=== PATIENT | male | born 1940 | race Caucasian/White ===

== ENCOUNTER 2018-04-08 13:56 | Inpatient (IN) | payer MEDICARE, BC | END 2018-04-17 12:39 | disposition home or self-care (01) | LOC: SSTAY O 13:56 → MED 3N 19:24 → CICU 2S 04-14 18:53 → ICU 2S 04-09 14:26 | PROC: 0210093 Bypass Coronary Artery, One Artery from Coronary Artery with Autologous Venous Tissue, Open Approach (ICD-10-PCS; principal; 2018-04-09 12:15) | PROC: 02RF08Z Replacement of Aortic Valve with Zooplastic Tissue, Open Approach (ICD-10-PCS; 2018-04-09 12:15) | PROC: 02100Z9 Bypass Coronary Artery, One Artery from Left Internal Mammary, Open Approach (ICD-10-PCS; 2018-04-09 12:15) | PROC: 06BP4ZZ Excision of Right Saphenous Vein, Percutaneous Endoscopic Approach (ICD-10-PCS; 2018-04-09 12:15) | PROC: 02L70ZK Occlusion of Left Atrial Appendage, Open Approach (ICD-10-PCS; 2018-04-09 12:15) | DX: I25.110 Atherosclerotic heart disease of native coronary artery with unstable angina pectoris (principal); N17.0 Acute kidney failure with tubular necrosis; I48.0 Paroxysmal atrial fibrillation ==

== ENCOUNTER 2020-01-10 12:03 | Inpatient (IN) | payer MEDICARE, BC ==
[2020-01-10] VITALS (12 sets, daily range): BP systolic 124–178; BP diastolic 67–117
[~2020-01-10] VITALS: Ht 188 cm; Wt 102.5 kg
[~2020-01-10 12:03] MED LIST: AMOX-422 PO; APIX5TAB3 PO; LISI-600 PO; METO25TA6 PO; MULT-620 PO; PRAV40TA3 PO; TRAM50TA2 PO
[2020-01-10] MEDS ORDERED: METO1TAB25 PO (12:28)
[2020-01-10] MEDS ORDERED: CLOT15CR73 TP (12:38)
[2020-01-10] MEDS ORDERED: METO50TA17 PO (12:38)
[2020-01-10 12:56] LABS: BASOPHILS % (AUTO) 0.2 % (0-1); EOSINOPHILS # (AUTO) 0.2 X10'3 (0-0.9); EOSINOPHILS % (AUTO) 1.2 % (0-6); HEMATOCRIT 52.4 % (42.0-52.0); HEMOGLOBIN 17.8 g/dl (14.0-17.9); LYMPHOCYTES # (AUTO) 0.9 X10'3 (1.1-4.8); LYMPHOCYTES % (AUTO) 6.1 % (21-51); MEAN CORPUSCULAR HEMOGLOBIN 31.6 PG (27.0-31.0); MEAN CORPUSCULAR HGB CONC 33.9 g/dL (33.0-36.5); MEAN CORPUSCULAR VOLUME 93.4 FL (78-98); MEAN PLATELET VOLUME 8.1 FL (7.4-10.4); MONOCYTES # (AUTO) 0.8 X10'3 (0-0.9); MONOCYTES % (AUTO) 5.2 % (2-12); NEUTROPHILS # (AUTO) 13.3 X10'3 (1.8-7.7); NEUTROPHILS % (AUTO) 87.3 % (42-75); PLATELET COUNT 145 X10'3 (140-440); RED BLOOD COUNT 5.61 X10'6 (4.70-6.10); RED CELL DISTRIBUTION WIDTH 13.9 % (11.5-14.5); WHITE BLOOD COUNT 15.2 X10'3 (4.5-11.0)
--- NOTE | 2020-01-10 13:00 | NUR ---
DR SEGUNDO INFORMED OF PATIENT AND HIS "PERFORATED BOWEL" FROM [facility] IMAGING CT DONE TODAY, NO ORDERS RECEIVED
[2020-01-10 13:07] LABS: ALANINE AMINOTRANSFERASE 26 U/L (12-78); ALBUMIN 3.9 G/DL (3.4-5.0); ALBUMIN/GLOBULIN RATIO 1.1 (1.1-1.5); ALKALINE PHOSPHATASE 94 IU/L (46-116); ANION GAP 8 (8-16); ASPARTATE AMINO TRANSFERASE 24 U/L (10-37); BILIRUBIN,TOTAL 1.2 MG/DL (0.1-1.0); BLOOD UREA NITROGEN 24 MG/DL (7-18); BUN/CREATININE RATIO 19.5 (5.4-32.0); CHLORIDE 102 MMOL/L (99-107); CREATININE 1.23 MG/DL (0.60-1.10); GLUCOSE 121 MG/DL (70-104); POTASSIUM 4.2 MMOL/L (3.5-5.1); SODIUM 138 MMOL/L (135-145); TOTAL CARBON DIOXIDE 28.3 MMOL/L (24-32); TOTAL PROTEIN 7.6 G/DL (6.4-8.2); eGFR 57 ML/MIN
[2020-01-10 13:25] LABS: AMYLASE 4656 U/L (25-115)
[2020-01-10 13:30] LABS: LIPASE > 30000 U/L (73-393)
[2020-01-10] MEDS ORDERED: piperacillin/tazo 3.375gm/50ml 50 ML IV ONE (13:30)
[2020-01-10 13:40] LABS: CLARITY,URINE SLIGHTLY CLOUDY (Clear); COLOR,URINE YELLOW (Yellow); GLUCOSE, URINE NEGATIVE (Neg); KETONES,URINE TRACE mg/dl (Neg); LEUKOCYTE ESTERASE ,URINE NEGATIVE (Neg); NITRITES, URINE NEGATIVE (Neg); OCCULT BLOOD,URINE NEGATIVE (Neg); PROTEIN,URINE 30 mg/dl (Neg)
[2020-01-10] MEDS ORDERED: acetaminophen 650mg rectal suppository RC PRN (13:40)
[2020-01-10 13:43] LABS: UA COLLECTION TYPE URINAL
[2020-01-10 13:52] LABS: COARSE GRANULAR CAST 0-3 /LPF (NEGATIVE); MUCUS STRANDS MANY /LPF (Neg); SQUAMOUS EPITHELIAL CELL,UR FEW /LPF (FEW)
[2020-01-10 13:53] LABS: HYALINE CASTS 0-3 /LPF (NEGATIVE); TRANSITIONAL EPI CELLS,URINE FEW /HPF
[2020-01-10 13:55] LABS: BACTERIA,URINE NONE SEEN /HPF (Neg); RBC,URINE 0-2 /HPF (0-2); WBC,URINE 0-4 /HPF (0-4)
--- NOTE | 2020-01-10 14:00 | NUR ---
DR SEGUNDO SPOKE TO SURGEON DR RUEDA
[2020-01-10] MEDS: normal saline 1000ml 1,000 ML IV SCH ×2 (14:10→20:25)
--- NOTE | 2020-01-10 14:14 | NUR ---
[facility] OR [facility] HERE AND TAKING PATIENT TO OR FOR SURGERY BY DR RUEDA. AT BEDSIDE TO GO WITH LOURDES TO MEET DR. RUEDA. ANGELIQUE ON POLE NOT HUNG PER FOOTWEAR MACHINERY INSTRUCTOR. KAI, AXOXDonnie, MARIBETH. UNABLE TO GIVE PATIENT PAIN MEDICINE DILAUDID IS NOT STOCKED IN THE ER. NS HUNG TO RIGHT AC 18 G PIV.
[2020-01-10] MEDS ORDERED: ondansetron/PF 4mg/2ml inj IV PRN (14:15)
[2020-01-10] MEDS ORDERED: hydrALAZINE 20mg/ml inj. IV PRN (14:15)
[2020-01-10] MEDS ORDERED: ringers solution, lacted 1,000 ML IV SCH (14:15)
[2020-01-10] MEDS ORDERED: HYDROmorphone/PF 0.2 MG/ML SYRINGE IV PRN (14:15)
[2020-01-10] MEDS ORDERED: fentaNYL/PF 50MCG/1 ML 2ML syringe IV PRN (14:15)
[2020-01-10] MEDS ORDERED: labetalol 20mg/4ml (5mg/ml) syringe IV PRN (14:15)
[2020-01-10] MEDS: HYDROmorphone/PF 0.2 MG/ML SYRINGE IV PRN ×2 (14:28→17:07)
[2020-01-10] MEDS ORDERED: phenylephrine 10mg/ml inj. ONE (14:47)
[2020-01-10] MEDS ORDERED: sevoflurane 250ml liquid IH ONE (14:47)
[2020-01-10] MEDS ORDERED: midazolam 2 mg/2 ml injection ONE (14:50)
[2020-01-10] MEDS ORDERED: fentaNYL/PF 50MCG/1 ML 2ML syringe ONE ×3 (14:50→16:16)
[2020-01-10] MEDS ORDERED: propofol inj 20 ML IV ONE (15:01)
[2020-01-10] MEDS ORDERED: LIDOcaine 2% (20mg/ml) 5ml vial ONE (15:01)
[2020-01-10] MEDS ORDERED: dexamethasone sod phosphate 4mg/ml inj. ONE (15:02)
[2020-01-10] MEDS ORDERED: rocuronium 10mg/ml inj IV ONE ×2 (15:02→15:36)
[2020-01-10] MEDS ORDERED: ondansetron/PF 4mg/2ml inj ONE (15:03)
[2020-01-10] MEDS ORDERED: piperacillin/tazo 4.5gm/100ml 100 ML IV SCH (16:00)
[2020-01-10] MEDS ORDERED: labetalol 20mg/4ml (5mg/ml) syringe IV ONE (16:17)
--- NOTE | 2020-01-10 16:36 | NUR ---
Received from OR via , accompanied by Anesthesiologist DR BARRAGAN and report given by Anesthesiolgist. AWAKE AND C/O ABD INCISIONAL PAIN. WILL MEDICATE. VITALS STABLE. DRESSING DI. ABD SOFT. LOBATO WITH CLEAR URINE.
[2020-01-10] MEDS: fentaNYL/PF 50MCG/1 ML 2ML syringe IV PRN ×2 (16:42→17:40)
[2020-01-10] MEDS ORDERED: acetaminophen 1,000mg/100ml IV 100 ML IV ONE (17:35)
--- NOTE | 2020-01-10 18:36 | NUR ---
Report called to receiving nurse. Transferred via BED Belongings . Special Issues communicated to receiving nurse. AWAKE AND ORIENTED. VITALS STABLE. DRESSING WITH SOME DRAINAGE NOTED. STATES PAIN IMPROVING. TO ORTHO RM [id number] AT THIS TIME.
--- NOTE | 2020-01-10 18:50 | NUR ---
RECEIVED PATIENT IN STABLE CONDITION TO ROOM 4013A.
[2020-01-11] VITALS (12 sets, daily range): BP systolic 117–160; BP diastolic 66–82
[2020-01-11] MEDS: piperacillin/tazo 4.5gm/100ml 100 ML IV SCH ×3 (01:04→17:19)
[2020-01-11] MEDS: HYDROmorphone inj. 0.5 MG/0.5 ML DISP.SYRIN IV PRN ×2 (05:30→09:55)
--- NOTE | 2020-01-11 06:23 | NUR ---
REPORT GIVEN TO RACHELE RAM
--- NOTE | 2020-01-11 06:28 | NUR ---
Patient in room ORTHO 4013a. I have received report from TOÑO RAM and had the opportunity to ask questions and assume patient care
[2020-01-11 08:38] LABS: BASOPHILS % (AUTO) 0.1 % (0-1); EOSINOPHILS % (AUTO) 0 % (0-6); HEMATOCRIT 42.8 % (42.0-52.0); HEMOGLOBIN 14.8 g/dl (14.0-17.9); LYMPHOCYTES # (AUTO) 0.7 X10'3 (1.1-4.8); MEAN CORPUSCULAR HGB CONC 34.5 g/dL (33.0-36.5); MEAN CORPUSCULAR VOLUME 92.8 FL (78-98); MEAN PLATELET VOLUME 8.2 FL (7.4-10.4); MONOCYTES # (AUTO) 0.7 X10'3 (0-0.9); MONOCYTES % (AUTO) 3.9 % (2-12); NEUTROPHILS # (AUTO) 15.3 X10'3 (1.8-7.7); PLATELET COUNT 115 X10'3 (140-440); RED BLOOD COUNT 4.61 X10'6 (4.70-6.10); RED CELL DISTRIBUTION WIDTH 14.2 % (11.5-14.5); WHITE BLOOD COUNT 16.6 X10'3 (4.5-11.0)
[2020-01-11 08:52] LABS: ALANINE AMINOTRANSFERASE 27 U/L (12-78); ALBUMIN 2.6 G/DL (3.4-5.0); ALBUMIN/GLOBULIN RATIO 0.8 (1.1-1.5); ALKALINE PHOSPHATASE 68 IU/L (46-116); ANION GAP 7 (8-16); ASPARTATE AMINO TRANSFERASE 26 U/L (10-37); BILIRUBIN,TOTAL 0.8 MG/DL (0.1-1.0); BLOOD UREA NITROGEN 23 MG/DL (7-18); CHLORIDE 104 MMOL/L (99-107); CREATININE 1.21 MG/DL (0.60-1.10); GLUCOSE 176 MG/DL (70-104); POTASSIUM 4.7 MMOL/L (3.5-5.1); SODIUM 135 MMOL/L (135-145); TOTAL CARBON DIOXIDE 23.8 MMOL/L (24-32); TOTAL PROTEIN 5.8 G/DL (6.4-8.2); eGFR 58 ML/MIN
[2020-01-11 09:15] LABS: LIPASE 3267 U/L (73-393)
--- NOTE | 2020-01-11 12:13 | NUR ---
REPORT CALLED TO JUSTICE IN [facility].
[2020-01-11] MEDS ORDERED: BUPIVAcaine/PF 2.5mg/ml (0.25%) 10ml vial ONE (12:57)
[2020-01-11] MEDS ORDERED: BUPIVACAINE liposomal/PF 13.3 MG/ML vial IM ONE (12:58)
[2020-01-11] MEDS ORDERED: MIDAZolam 1mg/ml 10ml vial ONE (13:00)
[2020-01-11] MEDS ORDERED: fentaNYL /PF 50mcg/ml 5ml ampule ONE (13:00)
--- NOTE | 2020-01-11 14:27 | NUR ---
Problems reprioritized. Patient report given, questions answered & plan of care reviewed with BRYANNA RAM.
[2020-01-11] MEDS: normal saline 1000ml 1,000 ML IV SCH ×2 (17:24→19:40)
--- NOTE | 2020-01-11 18:10 | NUR ---
Problems reprioritized. Patient report given, questions answered & plan of care reviewed with Savannah Gómez RN.
[2020-01-12] MEDS: piperacillin/tazo 4.5gm/100ml 100 ML IV SCH ×3 (00:02→17:06)
[2020-01-12] MEDS: HYDROmorphone inj. 0.5 MG/0.5 ML DISP.SYRIN IV PRN ×2 (00:07→05:28)
[2020-01-12] MEDS: ondansetron/PF 4mg/2ml inj IV PRN (00:07)
[2020-01-12 02:00] VITALS: BP 146/79
[2020-01-12] MEDS: normal saline 1000ml 1,000 ML IV SCH ×2 (05:28→15:40)
[2020-01-12 06:00] VITALS: BP 170/91
--- NOTE | 2020-01-12 06:35 | NUR ---
Report given to Toyin RAM.
--- NOTE | 2020-01-12 07:54 | NUR ---
PAGER ID: [phone] MESSAGE: [phone] KETTY PUTNAM CAN I GET THE DILAUDID INCREASED? AND HIS HOME MEDS RESTARTED. RACHELE [id number]
[2020-01-12 07:58] LABS: BASOPHILS % (AUTO) 0.1 % (0-1); EOSINOPHILS % (AUTO) 0.1 % (0-6); HEMOGLOBIN 13.8 g/dl (14.0-17.9); LYMPHOCYTES # (AUTO) 0.6 X10'3 (1.1-4.8); LYMPHOCYTES % (AUTO) 3.7 % (21-51); MEAN CORPUSCULAR HEMOGLOBIN 31.2 PG (27.0-31.0); MEAN CORPUSCULAR HGB CONC 33.7 g/dL (33.0-36.5); MEAN CORPUSCULAR VOLUME 92.6 FL (78-98); MEAN PLATELET VOLUME 8.4 FL (7.4-10.4); MONOCYTES # (AUTO) 1.1 X10'3 (0-0.9); MONOCYTES % (AUTO) 6.3 % (2-12); NEUTROPHILS # (AUTO) 15.8 X10'3 (1.8-7.7); NEUTROPHILS % (AUTO) 89.8 % (42-75); PLATELET COUNT 109 X10'3 (140-440); RED BLOOD COUNT 4.43 X10'6 (4.70-6.10); RED CELL DISTRIBUTION WIDTH 13.4 % (11.5-14.5); WHITE BLOOD COUNT 17.6 X10'3 (4.5-11.0)
[2020-01-12 08:09] LABS: ALANINE AMINOTRANSFERASE 23 U/L (12-78); ALBUMIN 2.5 G/DL (3.4-5.0); ALBUMIN/GLOBULIN RATIO 0.7 (1.1-1.5); ALKALINE PHOSPHATASE 64 IU/L (46-116); ANION GAP 8 (8-16); ASPARTATE AMINO TRANSFERASE 21 U/L (10-37); BILIRUBIN,TOTAL 1.1 MG/DL (0.1-1.0); BLOOD UREA NITROGEN 19 MG/DL (7-18); BUN/CREATININE RATIO 17.3 (5.4-32.0); CALCIUM 8.3 MG/DL (8.5-10.1); CHLORIDE 105 MMOL/L (99-107); GLUCOSE 117 MG/DL (70-104); LIPASE 598 U/L (73-393); POTASSIUM 4.4 MMOL/L (3.5-5.1); SODIUM 137 MMOL/L (135-145); TOTAL CARBON DIOXIDE 23.8 MMOL/L (24-32); TOTAL PROTEIN 5.9 G/DL (6.4-8.2); eGFR 64 ML/MIN
[2020-01-12] MEDS: HYDROmorphone 1 mg/ml syringe IV PRN ×3 (08:11→22:48)
[2020-01-12 10:00] VITALS: BP 140/81
[2020-01-12 14:00] VITALS: BP 154/89
[2020-01-12] MEDS: enoxaparin 100mg/ml syringe SUBCUT SCH ×2 (17:06→19:38)
[2020-01-12 18:00] VITALS: BP 172/89
--- NOTE | 2020-01-12 18:53 | NUR ---
Patient in room ORTHO 4013. I have received report from Toyin RAM and had the opportunity to ask questions and assume patient care.
--- NOTE | 2020-01-12 19:39 | NUR ---
Per Pharmacist non admin the 2000 dose of lovenox. Pt. received initial dose at 1700 this evening. Will restart BID scheduling in the AM.
--- NOTE | 2020-01-12 21:45 | NUR ---
PAGER ID: [phone] MESSAGE: [phone] Pt. José Miguel Woodard in 4013A. Had his f/c removed this afternoon. Lurdes leigh, has 750ml in his bladder. Please advise. Thank you. Hospitalist advised to put in a english catheter, and start the pt. on flomax.
[2020-01-12 22:00] VITALS: BP 155/87
[2020-01-13] MEDS: piperacillin/tazo 4.5gm/100ml 100 ML IV SCH ×2 (01:45→08:17)
[2020-01-13] MEDS: normal saline 1000ml 1,000 ML IV SCH ×2 (01:47→19:42)
[2020-01-13] MEDS: HYDROmorphone 1 mg/ml syringe IV PRN (05:09)
[2020-01-13 06:00] VITALS: BP 168/94
--- NOTE | 2020-01-13 06:37 | NUR ---
Problems reprioritized. Patient report given, questions answered & plan of care reviewed with Berenice RAM.
[2020-01-13 07:42] LABS: BASOPHILS # (AUTO) 0.1 X10'3 (0-0.2); BASOPHILS % (AUTO) 0.4 % (0-1); EOSINOPHILS # (AUTO) 0.2 X10'3 (0-0.9); EOSINOPHILS % (AUTO) 1.1 % (0-6); HEMATOCRIT 40.6 % (42.0-52.0); HEMOGLOBIN 13.9 g/dl (14.0-17.9); LYMPHOCYTES # (AUTO) 0.9 X10'3 (1.1-4.8); LYMPHOCYTES % (AUTO) 5.7 % (21-51); MEAN CORPUSCULAR HEMOGLOBIN 31.7 PG (27.0-31.0); MEAN CORPUSCULAR HGB CONC 34.2 g/dL (33.0-36.5); MEAN CORPUSCULAR VOLUME 92.5 FL (78-98); MEAN PLATELET VOLUME 7.8 FL (7.4-10.4); MONOCYTES # (AUTO) 0.9 X10'3 (0-0.9); MONOCYTES % (AUTO) 5.2 % (2-12); NEUTROPHILS # (AUTO) 14.5 X10'3 (1.8-7.7); NEUTROPHILS % (AUTO) 87.6 % (42-75); PLATELET COUNT 114 X10'3 (140-440); RED BLOOD COUNT 4.39 X10'6 (4.70-6.10); WHITE BLOOD COUNT 16.6 X10'3 (4.5-11.0)
[2020-01-13 07:49] LABS: ALANINE AMINOTRANSFERASE 36 U/L (12-78); ALBUMIN 2.4 G/DL (3.4-5.0); ALBUMIN/GLOBULIN RATIO 0.6 (1.1-1.5); ALKALINE PHOSPHATASE 101 IU/L (46-116); ANION GAP 8 (8-16); ASPARTATE AMINO TRANSFERASE 44 U/L (10-37); BILIRUBIN,TOTAL 1.5 MG/DL (0.1-1.0); BLOOD UREA NITROGEN 20 MG/DL (7-18); BUN/CREATININE RATIO 18.3 (5.4-32.0); CALCIUM 8.8 MG/DL (8.5-10.1); CHLORIDE 105 MMOL/L (99-107); CREATININE 1.09 MG/DL (0.60-1.10); GLUCOSE 108 MG/DL (70-104); LIPASE 117 U/L (73-393); POTASSIUM 4.1 MMOL/L (3.5-5.1); SODIUM 138 MMOL/L (135-145); TOTAL CARBON DIOXIDE 25.1 MMOL/L (24-32); TOTAL PROTEIN 6.2 G/DL (6.4-8.2); eGFR 65 ML/MIN
[2020-01-13] MEDS: enoxaparin 100mg/ml syringe SUBCUT SCH ×2 (08:21→19:42)
[2020-01-13 09:56] VITALS: BP 145/85
[2020-01-13 10:19] LABS: PLATELET ESTIMATE DECREASED; TOTAL CELLS COUNTED 100
--- NOTE | 2020-01-13 14:00 | NUR ---
Per MD Skinner, change patients surgical dressing.
[2020-01-13] MEDS: piperacillin/tazo 3.375gm/50ml 50 ML IV SCH (15:46)
[2020-01-13] MEDS: HYDROmorphone inj. 0.5 MG/0.5 ML DISP.SYRIN IV PRN (15:46)
--- NOTE | 2020-01-13 17:36 | NUR ---
PAGER ID: [phone] MESSAGE: [phone] José Miguel Woodard- gave patient 0.5 mg dilaudid, patient hallucinating. Berenice [phone]
--- NOTE | 2020-01-13 17:38 | NUR ---
Spoke with MD Skinner, she will adjust pain medications. Spoke with Patients son, he does not do well with narcotics espacially morphine.
[2020-01-13] MEDS ORDERED: acetaminophen 325mg tablet PO PRN (17:50)
[2020-01-13] MEDS ORDERED: HYDROmorphone 1 mg/ml syringe IV PRN (17:50)
[2020-01-13] MEDS ORDERED: HYDROmorphone inj. 0.5 MG/0.5 ML DISP.SYRIN IV PRN (17:50)
[2020-01-13 18:00] VITALS: BP 162/90
--- NOTE | 2020-01-13 18:19 | NUR ---
Problems reprioritized. Patient report given, questions answered & plan of care reviewed with Liz RAM.
--- NOTE | 2020-01-13 18:28 | NUR ---
Patient in room ORTHO 4013. I have received report from Berenice RAM and had the opportunity to ask questions and assume patient care.
[2020-01-13] MEDS: metoprolol tartrate 50mg tablet PO SCH (19:20)
[2020-01-13] MEDS: tamsulosin 0.4mg capsule PO SCH (19:21)
[2020-01-13] MEDS: atorvastatin 10mg tablet PO SCH (19:21)
[2020-01-13] MEDS: hydrALAZINE 20mg/ml inj. IV PRN (19:43)
[2020-01-13 20:00] VITALS: BP 164/97
[2020-01-13 22:30] VITALS: BP 162/88
[2020-01-13] MEDS: ondansetron/PF 4mg/2ml inj IV PRN (23:01)
[2020-01-13] MEDS ORDERED: HYDROmorphone inj. 0.5 MG/0.5 ML DISP.SYRIN IV ONE (23:05)
[2020-01-14] MEDS: normal saline 1000ml 1,000 ML IV SCH ×2 (00:01→13:21)
[2020-01-14] MEDS: piperacillin/tazo 3.375gm/50ml 50 ML IV SCH ×3 (00:44→17:31)
[2020-01-14 06:00] VITALS: BP 157/94
--- NOTE | 2020-01-14 06:28 | NUR ---
Problems reprioritized. Patient report given, questions answered & plan of care reviewed with Berenice RAM.
[2020-01-14 06:35] LABS: BASOPHILS % (AUTO) 0.1 % (0-1); EOSINOPHILS # (AUTO) 0.1 X10'3 (0-0.9); EOSINOPHILS % (AUTO) 0.8 % (0-6); HEMATOCRIT 38.8 % (42.0-52.0); HEMOGLOBIN 13.7 g/dl (14.0-17.9); LYMPHOCYTES # (AUTO) 0.7 X10'3 (1.1-4.8); LYMPHOCYTES % (AUTO) 5.4 % (21-51); MEAN CORPUSCULAR HEMOGLOBIN 32.3 PG (27.0-31.0); MEAN CORPUSCULAR HGB CONC 35.4 g/dL (33.0-36.5); MEAN CORPUSCULAR VOLUME 91.3 FL (78-98); MEAN PLATELET VOLUME 7.6 FL (7.4-10.4); MONOCYTES # (AUTO) 0.7 X10'3 (0-0.9); MONOCYTES % (AUTO) 5.4 % (2-12); NEUTROPHILS % (AUTO) 88.3 % (42-75); PLATELET COUNT 123 X10'3 (140-440); RED BLOOD COUNT 4.25 X10'6 (4.70-6.10); RED CELL DISTRIBUTION WIDTH 13.5 % (11.5-14.5); WHITE BLOOD COUNT 13.6 X10'3 (4.5-11.0)
[2020-01-14 06:55] LABS: ALANINE AMINOTRANSFERASE 45 U/L (12-78); ALBUMIN 2.1 G/DL (3.4-5.0); ALBUMIN/GLOBULIN RATIO 0.6 (1.1-1.5); ALKALINE PHOSPHATASE 130 IU/L (46-116); ANION GAP 10 (8-16); ASPARTATE AMINO TRANSFERASE 48 U/L (10-37); BILIRUBIN,TOTAL 1.2 MG/DL (0.1-1.0); BLOOD UREA NITROGEN 22 MG/DL (7-18); BUN/CREATININE RATIO 22.7 (5.4-32.0); CALCIUM 8.6 MG/DL (8.5-10.1); CHLORIDE 106 MMOL/L (99-107); CREATININE 0.97 MG/DL (0.60-1.10); GLUCOSE 115 MG/DL (70-104); POTASSIUM 3.8 MMOL/L (3.5-5.1); SODIUM 140 MMOL/L (135-145); TOTAL CARBON DIOXIDE 24.4 MMOL/L (24-32); TOTAL PROTEIN 5.8 G/DL (6.4-8.2); eGFR 74 ML/MIN
[2020-01-14] MEDS: lisinopril 10 MG tablet PO SCH ×2 (08:00→10:02)
[2020-01-14] MEDS: metoprolol tartrate 50mg tablet PO SCH ×3 (08:00→20:33)
[2020-01-14] MEDS: enoxaparin 100mg/ml syringe SUBCUT SCH ×2 (09:05→20:33)
[2020-01-14] MEDS: hydrALAZINE 20mg/ml inj. IV PRN (09:16)
[2020-01-14 10:00] VITALS: BP 158/94
[2020-01-14] MEDS ORDERED: tamsulosin 0.4mg capsule PO ONE (12:55)
[2020-01-14] MEDS: traMADol 50MG tablet PO PRN (13:17)
--- NOTE | 2020-01-14 15:48 | NUR ---
Initial: Pt admit with bowel perforation with peritonitis and acute pancreatitis possibly secondary to bowel perforation per H&P. Most recent lipase WNL. Pt s/p exploratory laparotomy on 01/09 with findings of jejunal diverticulosis per MD note. LBM 01/08 though pt has passed gas per MD note. Diet was advanced to clear liquids and pt documented with 100% PO intake first meal. Will continue to follow closely and make recommendations as appropriate. Recommendations: 1) Advance to regular diet as medically indicated 2) Monitor need for ONS/additional protein 3) Bowel care per rx 4) Scaled weights per rx Addendum: 01/14/20 at [address] Amended: Links added.
[2020-01-14 18:00] VITALS: BP 131/83
--- NOTE | 2020-01-14 18:36 | NUR ---
Problems reprioritized. Patient report given, questions answered & plan of care reviewed with Liz RAM.
--- NOTE | 2020-01-14 18:39 | NUR ---
Patient in room ORTHO 4013. I have received report from Berenice RAM and had the opportunity to ask questions and assume patient care.
[2020-01-14] MEDS: lactobacillus rhamnosus 10,000 MMU CELLS/CAPSULE PO SCH (20:32)
[2020-01-14] MEDS: atorvastatin 10mg tablet PO SCH (20:32)
[2020-01-14] MEDS: tamsulosin 0.4mg capsule PO SCH (20:32)
[2020-01-14 22:00] VITALS: BP 128/78
[2020-01-15] MEDS: piperacillin/tazo 3.375gm/50ml 50 ML IV SCH ×2 (01:08→07:57)
[2020-01-15] MEDS: normal saline 1000ml 1,000 ML IV SCH (02:41)
[2020-01-15 06:00] VITALS: BP 140/82
[2020-01-15 06:30] LABS: BASOPHILS % (AUTO) 0.1 % (0-1); EOSINOPHILS # (AUTO) 0.3 X10'3 (0-0.9); EOSINOPHILS % (AUTO) 2.4 % (0-6); HEMATOCRIT 37.1 % (42.0-52.0); HEMOGLOBIN 12.7 g/dl (14.0-17.9); LYMPHOCYTES # (AUTO) 0.7 X10'3 (1.1-4.8); LYMPHOCYTES % (AUTO) 5.7 % (21-51); MEAN CORPUSCULAR HEMOGLOBIN 31.1 PG (27.0-31.0); MEAN CORPUSCULAR HGB CONC 34.2 g/dL (33.0-36.5); MEAN CORPUSCULAR VOLUME 90.8 FL (78-98); MEAN PLATELET VOLUME 7.7 FL (7.4-10.4); MONOCYTES # (AUTO) 0.7 X10'3 (0-0.9); MONOCYTES % (AUTO) 5.6 % (2-12); NEUTROPHILS % (AUTO) 86.2 % (42-75); PLATELET COUNT 121 X10'3 (140-440); RED BLOOD COUNT 4.09 X10'6 (4.70-6.10); RED CELL DISTRIBUTION WIDTH 13.6 % (11.5-14.5); WHITE BLOOD COUNT 12.8 X10'3 (4.5-11.0)
--- NOTE | 2020-01-15 06:37 | NUR ---
Problems reprioritized. Patient report given, questions answered & plan of care reviewed with Berenice RAM.
[2020-01-15 06:45] LABS: ALANINE AMINOTRANSFERASE 47 U/L (12-78); ALBUMIN/GLOBULIN RATIO 0.6 (1.1-1.5); ALKALINE PHOSPHATASE 138 IU/L (46-116); ANION GAP 8 (8-16); ASPARTATE AMINO TRANSFERASE 41 U/L (10-37); BILIRUBIN,TOTAL 0.9 MG/DL (0.1-1.0); BLOOD UREA NITROGEN 23 MG/DL (7-18); BUN/CREATININE RATIO 21.5 (5.4-32.0); CALCIUM 8.4 MG/DL (8.5-10.1); CHLORIDE 104 MMOL/L (99-107); CREATININE 1.07 MG/DL (0.60-1.10); GLUCOSE 108 MG/DL (70-104); POTASSIUM 3.4 MMOL/L (3.5-5.1); SODIUM 139 MMOL/L (135-145); TOTAL CARBON DIOXIDE 26.7 MMOL/L (24-32); TOTAL PROTEIN 5.4 G/DL (6.4-8.2); eGFR 66 ML/MIN
[2020-01-15] MEDS: enoxaparin 100mg/ml syringe SUBCUT SCH (08:00)
[2020-01-15] MEDS: lactobacillus rhamnosus 10,000 MMU CELLS/CAPSULE PO SCH (08:00)
[2020-01-15] MEDS: lisinopril 10 MG tablet PO SCH (08:01)
[2020-01-15] MEDS: metoprolol tartrate 50mg tablet PO SCH (08:01)
[2020-01-15] MEDS: traMADol 50MG tablet PO PRN (08:01)
[2020-01-15 10:00] VITALS: BP 122/63
--- NOTE | 2020-01-15 14:44 | NUR ---
PAGER ID: [phone] MESSAGE: [phone] José Miguel Woodard- Can you please put in discharge medications/instructions? Berenice [phone]
[2020-01-15] MEDS ORDERED: METR-159 PO (14:51)
[2020-01-15] MEDS ORDERED: CIPR-259 PO (14:51)
--- NOTE | 2020-01-15 16:31 | NUR ---
Patient ready for discharge. PIV removed, cannula intact. Education for wound care, diet, and safety provided to patient and Sheila. Prescriptions called to [facility] in [place]. Patient provided with phone numbers for follow up with Dr. Dhillon and wound care. Home health will see patient tomorrow per case management to educate on wound care. Wound care supplies given and sent home with patient.
== END 2020-01-15 16:35 | disposition home health service (06) | DRG 335 ==
LOC: ER 12:04 → ED HOLD 13:38 → ORTHO 4S 18:15
PROVIDERS: ADMIT Family Medicine; ATTEND Family Medicine
PROC: 0DNA0ZZ Release Jejunum, Open Approach (ICD-10-PCS; principal; 2020-01-10 14:47)
PROC: 3E0T3BZ Introduction of Anesthetic Agent into Peripheral Nerves and Plexi, Percutaneous Approach (ICD-10-PCS; 2020-01-11)
DX: K57.00 Diverticulitis of small intestine with perforation and abscess without bleeding (principal); K85.90 Acute pancreatitis without necrosis or infection, unspecified; K65.8 Other peritonitis; I48.91 Unspecified atrial fibrillation; I35.0 Nonrheumatic aortic (valve) stenosis; I25.10 Atherosclerotic heart disease of native coronary artery without angina pectoris; I49.5 Sick sinus syndrome; E78.5 Hyperlipidemia, unspecified; E78.00 Pure hypercholesterolemia, unspecified; E83.119 Hemochromatosis, unspecified; N18.9 Chronic kidney disease, unspecified; I12.9 Hypertensive chronic kidney disease with stage 1 through stage 4 chronic kidney disease, or unspecified chronic kidney disease; Z88.8 Allergy status to other drugs, medicaments and biological substances; Z95.1 Presence of aortocoronary bypass graft; Z95.0 Presence of cardiac pacemaker; Z82.49 Family history of ischemic heart disease and other diseases of the circulatory system; Z87.891 Personal history of nicotine dependence; Z95.3 Presence of xenogenic heart valve
CPT/HCPCS: 36415; 71045; 80053; 81001; 82150; 83690; 85007; 85025; 86885; 86900; 86901; 87081; 93005; 96374; 96375; 97110; 97116; 97161; 97530; 99285; A4618; A6407; A7000; C1758; C9290; G0378; J0131; J0360; J1100; J1170; J1650; J2001; J2250; J2370; J2405; J2543; J2704; J3010; J3490; J7030; J7120

== ENCOUNTER 2021-07-24 12:33 | Day surgery (SDC) | payer MEDICARE, BC ==
[2021-07-19 10:46] LABS: BASOPHILS # (AUTO) 0.1 X10'3 (0-0.2); BASOPHILS % (AUTO) 0.9 % (0-1); EOSINOPHILS # (AUTO) 0.4 X10'3 (0-0.9); EOSINOPHILS % (AUTO) 6.1 % (0-6); HEMATOCRIT 41.7 % (42.0-52.0); HEMOGLOBIN 14.1 g/dl (14.0-17.9); LYMPHOCYTES # (AUTO) 1.3 X10'3 (1.1-4.8); LYMPHOCYTES % (AUTO) 19.2 % (21-51); MEAN CORPUSCULAR HEMOGLOBIN 30.5 PG (27.0-31.0); MEAN CORPUSCULAR HGB CONC 33.9 g/dL (33.0-36.5); MEAN CORPUSCULAR VOLUME 90.1 FL (78-98); MONOCYTES # (AUTO) 0.5 X10'3 (0-0.9); MONOCYTES % (AUTO) 7.9 % (2-12); NEUTROPHILS # (AUTO) 4.3 X10'3 (1.8-7.7); NEUTROPHILS % (AUTO) 65.9 % (42-75); PLATELET COUNT 153 X10'3 (140-440); RED BLOOD COUNT 4.63 X10'6 (4.70-6.10); RED CELL DISTRIBUTION WIDTH 14.8 % (11.5-14.5); WHITE BLOOD COUNT 6.6 X10'3 (4.5-11.0)
[2021-07-19 10:52] LABS: ALBUMIN 3.4 G/DL (3.4-5.0); ANION GAP 7 (8-16); BLOOD UREA NITROGEN 20 MG/DL (7-18); BUN/CREATININE RATIO 14.8 (5.4-32.0); CALCIUM 9.2 MG/DL (8.5-10.1); CHLORIDE 106 MMOL/L (99-107); CREATININE 1.35 MG/DL (0.60-1.10); GLUCOSE 101 MG/DL (70-104); POTASSIUM 4.5 MMOL/L (3.5-5.1); SODIUM 139 MMOL/L (135-145); TOTAL CARBON DIOXIDE 25.6 MMOL/L (24-32); eGFR 51 ML/MIN
[2021-07-19 10:56] LABS: APTT 28 SECONDS (22-32)
[~2021-07-24] VITALS: Ht 188 cm; Wt 99.5 kg
[2021-07-24] VITALS (14 sets, daily range): BP systolic 121–143; BP diastolic 76–100
[~2021-07-24 12:33] MED LIST changes: -AMOX-422 PO; -LISI-600 PO; +LISI20TA28 PO; -METO25TA6 PO; +METO50TA17 PO; -TRAM50TA2 PO
[2021-07-24] MEDS ORDERED: diphenhydrAMINE 25mg capsule PO PRN (12:50)
[2021-07-24] MEDS ORDERED: normal saline 1,000 ML IV SCH (12:50)
[2021-07-24] MEDS ORDERED: LORazepam 0.5 MG tablet PO PRN (12:50)
[2021-07-24] MEDS ORDERED: UBID100C16 PO (13:00)
[2021-07-24] MEDS ORDERED: ISOS60TA71 PO (13:00)
[2021-07-24] MEDS ORDERED: ASPI81TA52 PO (13:00)
[2021-07-24] MEDS ORDERED: midazolam 1 mg/ML 2ml injection ONE ×2 (14:08→15:37)
[2021-07-24] MEDS ORDERED: fentaNYL/PF 50MCG/1 ML 2ML syringe ONE (14:08)
[2021-07-24] MEDS ORDERED: LIDOcaine 1% 30ml preserv. free vial ONE (14:09)
--- NOTE | 2021-07-24 15:20 | NUR ---
Pt to labor economics professor, report to Dirk RAM
[2021-07-24] MEDS ORDERED: iohexol 350 MG/ML 50ML vial IV ONE (15:43)
--- NOTE | 2021-07-24 16:17 | NUR ---
Pt returned from cath laboratory technician, right groin site stable, dressing CD&I, no bleeding, bruising or hematoma noted. VSS.
[2021-07-24] MEDS ORDERED: ondansetron/PF 4mg/2ml inj IV PRN (16:45)
[2021-07-24] MEDS ORDERED: proCHLORperazine 10 MG/2 ml inj IV PRN (16:45)
--- NOTE | 2021-07-24 16:45 | NUR ---
Pt eating sandwich and drinking water without problems.
--- NOTE | 2021-07-24 17:00 | NUR ---
at bedside. Dr. Hook gave update in waiting room.
--- NOTE | 2021-07-24 18:15 | NUR ---
Pt sitting up in bed, right groin site stable, no bleeding, bruising our hematoma dressing CD&I.
--- NOTE | 2021-07-24 18:40 | NUR ---
Pt amb in hallway, gait steady, right groin site stable, no bleeding, bruising or hematoma noted.
--- NOTE | 2021-07-24 18:45 | NUR ---
Written and verbal DC instructions given to pt and , verbalize understanding. PIV DC cath intact. Pt able to dress self, steady on feet. VSS, denies pain. Right groin site remains stable.
--- NOTE | 2021-07-24 19:00 | NUR ---
DC to home with and all belongings. Transferred to private car via WC, pt able to transfer self to car.
== END 2021-07-24 19:00 | disposition home or self-care (01) ==
LOC: SSTAY O 12:33
PROVIDERS: ATTEND Internal Medicine Interventional Cardiology
DX: R07.89 Other chest pain (principal); I25.10 Atherosclerotic heart disease of native coronary artery without angina pectoris; G47.33 Obstructive sleep apnea (adult) (pediatric); I10 Essential (primary) hypertension; I45.10 Unspecified right bundle-branch block; I35.0 Nonrheumatic aortic (valve) stenosis; I44.30 Unspecified atrioventricular block; I48.0 Paroxysmal atrial fibrillation; Z86.73 Personal history of transient ischemic attack (TIA), and cerebral infarction without residual deficits; Z95.0 Presence of cardiac pacemaker; Z79.82 Long term (current) use of aspirin; Z79.899 Other long term (current) drug therapy; Z79.01 Long term (current) use of anticoagulants; Z95.1 Presence of aortocoronary bypass graft; Z95.2 Presence of prosthetic heart valve; Z88.5 Allergy status to narcotic agent
CPT/HCPCS: 36415; 80048; 85025; 85610; 85730; 93005; 93455; 99152; 99153; C1760; C1769; C1894; J1644; J2250; J3010; J3490; Q9967; A4620; A6258

== ENCOUNTER 2023-02-03 09:41 | Emergency (ER) | payer MEDICARE, BC ==
[~2023-02-03] VITALS: Ht 188 cm; Wt 103.8 kg
[~2023-02-03 09:41] MED LIST changes: +ASPI81TA52 PO; +ISOS60TA71 PO; +UBID100C16 PO
[2023-02-03] MEDS ORDERED: traMADol 50MG tablet PO ONE (12:55)
[2023-02-03 14:44] VITALS: BP 157/106; PULSE 87; RESP 17; TEMP 97.7; O2SAT 98
== END 2023-02-03 14:45 | disposition home or self-care (01) ==
LOC: ER 09:42
DX: S53.402A Unspecified sprain of left elbow, initial encounter (principal); S40.812A Abrasion of left upper arm, initial encounter; I48.91 Unspecified atrial fibrillation; I25.10 Atherosclerotic heart disease of native coronary artery without angina pectoris; E78.00 Pure hypercholesterolemia, unspecified; Z95.5 Presence of coronary angioplasty implant and graft; Z95.0 Presence of cardiac pacemaker; Z79.82 Long term (current) use of aspirin; Z79.899 Other long term (current) drug therapy; W01.0XXA Fall on same level from slipping, tripping and stumbling without subsequent striking against object, initial encounter; Z91.81 History of falling; Y93.89 Activity, other specified; Y92.89 Other specified places as the place of occurrence of the external cause; Y99.8 Other external cause status
CPT/HCPCS: 73080; 73110; 73200; 99284

== ENCOUNTER 2023-09-28 06:34 | Emergency (ER) | payer MEDICARE, BC ==
[~2023-09-28] VITALS: Ht 188 cm; Wt 101.2 kg
[2023-09-28 06:51] VITALS: BP 129/94; PULSE 70; RESP 18; TEMP 97.3; O2SAT 9
== END 2023-09-28 08:51 | disposition left against medical advice (07) ==
LOC: ER 06:34
DX: S51.002A Unspecified open wound of left elbow, initial encounter (principal); Z53.21 Procedure and treatment not carried out due to patient leaving prior to being seen by health care provider; V18.0XXA Pedal cycle driver injured in noncollision transport accident in nontraffic accident, initial encounter; Y93.89 Activity, other specified; Y92.89 Other specified places as the place of occurrence of the external cause; Y99.8 Other external cause status

== ENCOUNTER 2023-10-08 14:28 | Emergency (ER) | payer MEDICARE, BC ==
[~2023-10-08] VITALS: Ht 188 cm; Wt 100.0 kg
[2023-10-08 14:48] VITALS: TEMP 97.1
[2023-10-08 15:45] LABS: BASOPHILS # (AUTO) 0.1 X10'3 (0-0.2); BASOPHILS % (AUTO) 0.8 % (0-1); EOSINOPHILS # (AUTO) 0.7 X10'3 (0-0.9); HEMATOCRIT 45.3 % (42.0-52.0); HEMOGLOBIN 15.3 g/dl (14.0-17.9); LYMPHOCYTES # (AUTO) 1.2 X10'3 (1.1-4.8); LYMPHOCYTES % (AUTO) 17.8 % (21-51); MEAN CORPUSCULAR HEMOGLOBIN 31.2 PG (27.0-31.0); MEAN CORPUSCULAR HGB CONC 33.8 g/dL (33.0-36.5); MEAN CORPUSCULAR VOLUME 92.2 FL (78-98); MEAN PLATELET VOLUME 8.1 FL (7.4-10.4); MONOCYTES # (AUTO) 0.5 X10'3 (0-0.9); MONOCYTES % (AUTO) 7.2 % (2-12); NEUTROPHILS # (AUTO) 4.3 X10'3 (1.8-7.7); NEUTROPHILS % (AUTO) 64.2 % (42-75); PLATELET COUNT 126 X10'3 (140-440); RED BLOOD COUNT 4.92 X10'6 (4.70-6.10); RED CELL DISTRIBUTION WIDTH 14.9 % (11.5-14.5); WHITE BLOOD COUNT 6.7 X10'3 (4.5-11.0)
[2023-10-08 15:54] LABS: ALBUMIN 3.5 G/DL (3.4-5.0); ANION GAP 3 (8-16); BLOOD UREA NITROGEN 19 MG/DL (7-18); BUN/CREATININE RATIO 15.1 (10.0-20.0); CALCIUM 9.1 MG/DL (8.5-10.1); CHLORIDE 105 MMOL/L (99-107); CREATININE 1.26 MG/DL (0.60-1.10); GLUCOSE 101 MG/DL (70-104); POTASSIUM 3.7 MMOL/L (3.5-5.1); SODIUM 136 MMOL/L (135-145); TOTAL CARBON DIOXIDE 27.9 MMOL/L (24-32); eCRCL 52 ML/MIN; eGFR 55 ML/MIN
[2023-10-08 16:55] LABS: BILIRUBIN,URINE NEGATIVE (Neg); CLARITY,URINE CLEAR (Clear); COLOR,URINE YELLOW (Yellow); GLUCOSE, URINE NEGATIVE (Neg); KETONES,URINE NEGATIVE (Neg); LEUKOCYTE ESTERASE ,URINE NEGATIVE (Neg); NITRITES, URINE NEGATIVE (Neg); OCCULT BLOOD,URINE NEGATIVE (Neg); PROTEIN,URINE NEGATIVE (Neg); UROBILINOGEN,URINE 0.2 E.U/dL (0.2-1.0)
[2023-10-08 17:04] LABS: UA COLLECTION TYPE VOIDED
[2023-10-08 17:41] VITALS: BP 142/94; PULSE 70; RESP 16; O2SAT 97
== END 2023-10-08 17:50 | disposition home or self-care (01) ==
LOC: ER 14:29
DX: R10.84 Generalized abdominal pain (principal); Z98.890 Other specified postprocedural states; I11.0 Hypertensive heart disease with heart failure; I50.9 Heart failure, unspecified; I48.91 Unspecified atrial fibrillation; I25.10 Atherosclerotic heart disease of native coronary artery without angina pectoris; E78.00 Pure hypercholesterolemia, unspecified; G47.30 Sleep apnea, unspecified; Z79.899 Other long term (current) drug therapy; Z79.82 Long term (current) use of aspirin; Z95.1 Presence of aortocoronary bypass graft; Z90.49 Acquired absence of other specified parts of digestive tract
CPT/HCPCS: 36415; 71045; 74176; 80048; 81003; 83605; 84145; 85025; 87040; 99284

== ENCOUNTER 2024-10-26 09:59 | Day surgery (SDC) | payer MEDICARE, BC ==
[2024-10-22 12:39] LABS: MEAN PLATELET VOLUME 8.1 FL (7.4-10.4); RED CELL DISTRIBUTION WIDTH 14.4 % (11.5-14.5)
[2024-10-22 12:50] LABS: APTT 27 SECONDS (22-32); INR 1.1 INR
[2024-10-22 12:51] LABS: CHOL/HDL RATIO 1.9 (0.00-4.99); CREATININE 1.38 MG/DL (0.60-1.10); LDL CHOLESTEROL 40 MG/DL (50-100); TOTAL CARBON DIOXIDE 27.7 MMOL/L (24-32); eGFR 49 ML/MIN
[2024-10-26] VITALS (10 sets, daily range): BP systolic 110–136; BP diastolic 63–87; PULSE 73–86; RESP 13–16; TEMP 97.9; O2SAT 95–98
[~2024-10-26] VITALS: Ht 185.4 cm; Wt 96.4 kg
[~2024-10-26 09:59] MED LIST changes: +DILT120C19 PO; +FURO20TA4 PO; -ISOS60TA71 PO; -LISI20TA28 PO; -METO50TA17 PO; -PRAV40TA3 PO; +ROSU20TA98 PO
[2024-10-26] MEDS ORDERED: ISOS30TA84 PO (10:35)
--- NOTE | 2024-10-26 10:51 | ELECTROCARDIOGRAPH REPORT ---
[facility] Test Date: 2024-10-26 Test Time: 10:43:21 Pat Name: KETTY PUTNAM Department: PRE/OP CARDIOLOGY [id number] Room: Gender: M Lasting Room Supervisor: : [id number] Requested By: WALKER ADKINS Order Number: [id number] Reading MD: Dr. SARWAT Bautista Measurements Intervals [place] Rate: 79 P: -50 ID: [id number] QRS: 31 QRSD: 149 T: -3 QT: 407 QTc: 467 Interpretive Statements Sinus or ectopic atrial rhythm Probable left atrial enlargement Right bundle branch block Electronically Signed On 10-26-2024 17:18:[address] SARWAT Bautista Please click the below link to view image of tracing.
[2024-10-26] MEDS ORDERED: midazolam 1 mg/ML 2ml injection ONE ×2 (12:07→13:08)
[2024-10-26] MEDS ORDERED: LIDOcaine 1% 30ml preserv. free vial ONE (12:07)
[2024-10-26] MEDS ORDERED: fentaNYL/PF 50MCG/1 ML 2ML syringe ONE (12:07)
[2024-10-26] MEDS ORDERED: ondansetron/PF 4mg/2ml inj IV PRN (14:15)
[2024-10-26] MEDS ORDERED: OXAZEpam 15mg capsule PO PRN (14:15)
--- NOTE | 2024-10-31 18:52 | CARDIOLOGY REPORT ---
DATE OF SERVICE: 10/26/2024 DICTATING PHYSICIAN: Arnol Hook MD CARDIAC CATHETERIZATION DATE OF STUDY: 10/26/2024. PROCEDURES: * Selective coronary angiography. * Selective left internal mammary artery angiography x 1. * Selective saphenous vein bypass graft angiography x 1. * Conscious sedation monitoring time for 15 minutes. INDICATION: Chest pain. PHYSICIAN: Arnol Hook MD DESCRIPTION OF PROCEDURE: After informed consent was obtained, the patient was brought to the lab, where he was prepped and draped in the usual sterile fashion. After adequate anesthesia was obtained using 1% lidocaine to the right groin, a 6-Burmese sheath was inserted into the right femoral artery. Thereafter, using a JL4 followed by a JR4 catheter, selective coronary angiography was performed. The JR4 catheter was manipulated to engage the saphenous vein graft to the diagonal branch of the LAD. The catheter was then manipulated to engage the left internal mammary artery and selective left internal mammary artery angiography was performed. HEMODYNAMICS: For the patient's hemodynamics, please refer to the event log. FINDINGS: The left main coronary artery is a short-caliber vessel, free of significant disease. The left anterior descending coronary artery is occluded proximally. The circumflex coronary artery has a 30% proximal stenosis. The [place] right coronary artery has mild luminal irregularities. The left internal mammary artery to the LAD is a small-caliber vessel that is widely patent. The vein graft to the diagonal branch of the LAD is patent. The graft goes into a small-caliber diagonal branch. IMPRESSION: * Occluded LAD with a patent AGUILERA to the LAD. The AGUILERA is a small-caliber vessel. * The vein graft to the diagonal branch of the LAD is widely patent. The [place] diagonal branch is a small-caliber vessel. * 30% proximal stenosis of the circumflex coronary artery. * Mild luminal irregularities of the right coronary artery. * Left ventriculography was not performed. Arnol Hook MD TID: [id number] RECEIPT: [id number] TIM/YOVANNY
== END 2024-10-26 16:45 | disposition home or self-care (01) ==
LOC: SSTAY O 09:59
PROVIDERS: ATTEND Student in an Organized Health Care Education/Training Program
DX: I25.10 Atherosclerotic heart disease of native coronary artery without angina pectoris (principal); I45.10 Unspecified right bundle-branch block; I10 Essential (primary) hypertension; E78.00 Pure hypercholesterolemia, unspecified; I48.0 Paroxysmal atrial fibrillation; G47.33 Obstructive sleep apnea (adult) (pediatric); Z86.73 Personal history of transient ischemic attack (TIA), and cerebral infarction without residual deficits; Z79.01 Long term (current) use of anticoagulants; Z79.82 Long term (current) use of aspirin; Z79.899 Other long term (current) drug therapy; Z95.1 Presence of aortocoronary bypass graft; Z88.5 Allergy status to narcotic agent
CPT/HCPCS: 36415; 80048; 80061; 83695; 85025; 85610; 85730; 93005; 93455; 99152; A6258; C1760; J1644; J2003; J2250; J3010; J7030; Q9967; Z7610

== ENCOUNTER 2024-11-24 19:19 | Emergency (ER) | payer MEDICARE, BC ==
[~2024-11-24] VITALS: Ht 172.7 cm; Wt 100.0 kg
[~2024-11-24 19:19] MED LIST changes: +ISOS30TA84 PO; +PER5325T PO
--- NOTE | 2024-11-24 21:19 | Physician Documentation ---
History of Present Illness ~ Chief Complaint: Post-operative complication Stated Complaint: ABD WOUND Time Seen by MD: 21:17 Primary Medical Doctor: dr. reyna, dr. mariee HPI 84-year-old male who presents to the emergency department status post exploratory lap with ileocecotomy 11/[address] Rubi. Discharged from [facility] on 11/18. Family noted erythema around the staple sites and then noted some discharge from the distal salome that began yesterday. No associated cough or fever or myalgias. Taking medications as directed. No nausea or vomiting and diarrhea. Medication Reconciliation Allergies: Coded Allergies: No Known Drug Allergies (Verified Allergy, Unknown, 09/28/23) Scheduled Apixaban (Eliquis), 1 TAB PO Q12H, (Reported) Aspirin (Aspirin EC), 1 TAB PO DAILY, (Reported) Diltiazem HCl (Diltiazem ER), 1 CAP PO DAILY, (Reported) Furosemide (Furosemide), 1 TAB PO DAILY, (Reported) Isosorbide Mononitrate (Isosorbide Mononitrate Er), 1 TAB PO QAM, (Reported) Multivitamins (Multivitamins), 1 TAB PO DAILY, (Reported) Rosuvastatin Calcium (Rosuvastatin Calcium), 1 TAB PO HS, (Reported) Ubidecarenone (Coq-10), 100 MG PO DAILY, (Reported) Scheduled PRN Oxycodone Hcl/Acetaminophen 5/325 MG* (Percocet 5/325 MG*), 1 TAB PO Q4H PRN for moderate or severe pain 4-10 Past Medical History Past Medical History: Angina, Aortic Stenosis, Atrial Fibrillation, Coronary Artery Disease, High Cholesterol, Hypertension, Sleep Apnea, Pancreatitis Past Surgical History: angioplasty, cholecystectomy, coronary bypass surgery, heart valve surgery, pacemaker Other Past Surgical History: Exploratory laparotomy and repair of jejunal diverticular perforation leadi Patient History: (CHF) Congestive heart failure FATHER, , Age: 83, Cause: Heart attack ( AGE 83) ([place]) Myocardial infarction MOTHER, , Age: 57, Cause: Stroke ( AGE 57) FH: hemochromatosis MOTHER, , Age: 57, Cause: Stroke CHILD Alcohol Use: Rarely Drug Use: none Lives with: Spouse Lives In: Home Occupation: retired Review of Systems All Other Systems at this time: Reviewed and Negative Constitutional: Denies: chills, fever, malaise Gastrointestinal: Reports: abdominal pain; Denies: abdomen distended, nausea, vomiting, diarrhea Gastrointestinal Discharge from incision site Musculoskeletal: Reports: no symptoms reported Integumentary: Reports: wound(s) Integumentary Erythema to the incision site Physical Exam Vital Signs: Temperature: 97.0, Heart Rate: 72, Respiratory Rate: 18, BP: 104/62, Pulse Oximetry: 97, Weight: 100.000 General Appearance: alert, WD/WN, mild distress EENT: PERRL/EOMI Neck: normal inspection Respiratory: lungs clear, normal breath sounds, no respiratory distress Chest: no accessory muscle use Cardiology Exam: normal peripheral pulses Gastrointestinal: tenderness, other (Erythema to incision); No: rebound, guarding, rigidity Extremities: normal range of motion Neurologic: oriented x4 Psychiatric: normal mood/affect, anxiety Skin: normal color, other (Erythema to wound incision with serosanguineous dis charge from the distal incision site) Progress Results/Orders Results/Orders Medications Received in ER Medications (Trade) Dose Ordered Sig/Mari Route PRN Reason Start Time Stop Time Status Last Admin Dose Admin (Percocet 5-325mg tab) 1 tab ONCE ONCE PO 11/24/24 21:20 11/24/24 21:23 DC 11/24/24 22:18 1 TAB Vital Signs 11/24/24 11/24/24 11/24/24 11/24/24 19:32 22:12 22:16 23:02 Temp 97.0 Pulse 72 74 73 Resp 18 18 19 B/P (MAP) 104/62 115/75 (88) 116/75 (89) Pulse Ox 97 98 97 11/25/24 00:36 Pulse 73 Resp 19 B/P (MAP) 114/75 (88) Pulse Ox 97 Laboratory Tests Test 11/24/24 21:38 White Blood Count 7.7 Red Blood Count 4.48 L Hemoglobin 13.4 L Hematocrit 39.8 L Mean Corpuscular Volume 88.8 Mean Corpuscular Hemoglobin 30.0 Mean Corpuscular Hemoglobin Concent 33.8 Red Cell Distribution Width 14.0 Platelet Count 247 Mean Platelet Volume 7.9 Neutrophils (%) (Auto) 81.3 H Lymphocytes (%) (Auto) 11.0 L Monocytes (%) (Auto) 5.6 Eosinophils (%) (Auto) 1.7 Basophils (%) (Auto) 0.4 Neutrophils # (Auto) 6.2 Lymphocytes # (Auto) 0.8 L Monocytes # (Auto) 0.4 Eosinophils # (Auto) 0.1 Basophils # (Auto) 0.0 CBC Comment Sodium Level 139 Potassium Level 3.6 Chloride Level 104 Carbon Dioxide Level 29.8 Anion Gap 5 L Blood Urea Nitrogen 16 Creatinine 1.11 H Estimated GFR/1.73 m2 63 BUN/Creatinine Ratio 14.4 Glucose Level 136 H Lactic Acid Level 1.1 Calcium Level 9.1 Total Bilirubin 0.5 Aspartate Amino Transf (AST/SGOT) 59 H Alanine Aminotransferase (ALT/SGPT) 98 H Alkaline Phosphatase 145 H Total Protein 6.6 Albumin 2.7 L Globulin 3.9 Albumin/Globulin Ratio 0.7 L Chemistry Comments Medical Decision Making Findings Patient presents to the emergency room with some bleeding from his previous surgical wound. Differentials include but are not limited to intra-abdominal bleeding, intra-abdominal infection, cellulitis, wound dehiscence therefore emergent labs ordered as well as CT scan. Labs are reassuring for no elevation of white blood cell count and no reassuring lactic acid. Patient does have some erythema associated with his wound however this is unchanged in the past several days and I do not believe this has mirza cellulitis. CT scan did show some inflammation which I believe that has likely related to postsurgical changes and that has not represent significant intra-abdominal bleeding or infection. When asked if they would have come to the emergency room had they not seen blood on the wound they state that they would not have. He states that has pain from discharge is the same and that has not worsened which is reassuring. I will give them a prescription in hand to begin if any erythema increases about his wound and ER precautions. Utilizing shared decision-making we feel this is the best plan at this time. Additional Comments 84-year-old male who is status post bowel surgery (ilioceotomy) with wound dehiscence and serous sanguinous non smelling drainage with early cellulitis cellulitis without obvious abscess requiring laboratory evaluation, CT imaging and consultation for consideration of admission. Patient pending laboratory evaluation and CT imaging evaluation. Care turned over to Dr. De La Torre. Departure Disposition: HOME / SELF CARE / HOMELESS Impression: Primary Impression: Bleeding from surgical wound Condition: Stable Discharge Instructions: Abdominal Pain, Adult, [id number] Additional Instructions: Return for worsening of symptoms. Referrals: NO PRIMARY CARE PROVIDER (PCP) Prescriptions Cephalexin*Monohydrate* (Keflex*) 500 Mg Capsule 1 CAP PO Q12H for 10 Days, #20 CAP Prov: MELE DE LA TORRE MD 11/25/24 Education Educated: Patient Educated regarding: diagnosis, treatment, need for follow up Signature Scribe Signature: No scribe Attestation: The note accurately reflects work and decisions made by me.Mele De La Torre MD 11/25/24 00:49 MELE DE LA TORRE MD Nov 24, 2024 21:19 ELAINE ESCOBEDO Nov 24, 2024 22:02
[2024-11-24] MEDS ORDERED: iohexol 300mg/ml 100ml inj. ONE (21:30)
[2024-11-24 22:06] LABS: CREATININE 1.11 MG/DL (0.60-1.10); TOTAL CARBON DIOXIDE 29.8 MMOL/L (24-32); eCRCL 48 ML/MIN; eGFR 63 ML/MIN
[2024-11-24 22:10] LABS: MEAN PLATELET VOLUME 7.9 FL (7.4-10.4); RED CELL DISTRIBUTION WIDTH 14.0 % (11.5-14.5)
[2024-11-24] MEDS: oxyCODONE/APAP 5-325mg tablet PO ONE (22:18)
--- NOTE | 2024-11-24 22:38 | RADIOLOGY REPORT ---
Exam: CT CT ABDOMEN PELVIS W/ IV CONTRAST History: wound infection Comparison Study: CT CTA ABDOMEN PELVIS on DOS: 11/13/24, CT CT ABDOMEN PELVIS on DOS: 10/08/23 TECHNIQUE: A digital smoke chaser image was obtained. During the uneventful, intravenous administration of contrast material, multislice data acquisition was obtained through the abdomen and pelvis. The data set was subsequently reconstructed into multiplanar reformats. RADIATION DOSE: CTDI vol 24.8 mGy. DLP 1435.74 mGy.cm Findings: Lungs: Dependent atelectatic changes. Liver: Unremarkable. Spleen: Unremarkable. Pancreas: Scattered pancreatic calcifications. Gallbladder: Prior cholecystectomy. Adrenals: Unremarkable Kidneys: Unremarkable. Pelvic Viscera: Prostatomegaly with indentation upon the urinary bladder. Vasculature: Atherosclerotic aortoiliac calcification. Retroperitoneum: Shotty retroperitoneal nodes. Bowel: Interval partial right colectomy with mild stranding within the right mid abdomen, likely postsurgical. No bowel obstruction. Musculoskeletal: Unremarkable. Soft tissues: Subcutaneous induration about the mid anterior abdominal wall. Small locule of gas is likely referable to recent procedure. Impression: 1. Interval partial colectomy with mild stranding surrounding the surgical site within the right midabdomen, likely postoperative though developing infectious/inflammatory process cannot be entirely excluded. 2. Subcutaneous induration about the anterior abdominal wall, likely postsurgical, though infectious/inflammatory process cannot be excluded. No drainable collection. 3. Incidental findings as detailed.
[2024-11-25] MEDS ORDERED: CEPH-585 PO (00:49)
[2024-11-25 00:58] VITALS: BP 120/70; PULSE 88; RESP 16; TEMP 97; O2SAT 99
== END 2024-11-25 00:59 | disposition home or self-care (01) ==
LOC: ER 19:19
DX: T81.89XA Other complications of procedures, not elsewhere classified, initial encounter (principal); E78.00 Pure hypercholesterolemia, unspecified; G47.30 Sleep apnea, unspecified; I11.0 Hypertensive heart disease with heart failure; I50.9 Heart failure, unspecified; I21.9 Acute myocardial infarction, unspecified; I25.10 Atherosclerotic heart disease of native coronary artery without angina pectoris; I48.91 Unspecified atrial fibrillation; Z95.0 Presence of cardiac pacemaker; Z95.1 Presence of aortocoronary bypass graft; Z79.82 Long term (current) use of aspirin; Y92.89 Other specified places as the place of occurrence of the external cause
CPT/HCPCS: 36415; 74177; 80053; 83605; 85025; 99285; A6253; Q9967